=== PATIENT | female | born 1970 | race Caucasian/White ===

== ENCOUNTER → 2016-04-10 | Outpatient (REF) | payer OTHER ==
[~2016-04-10] MED LIST: /WARF5TA OR; ALBU17IN INH; COUM1TAB17 PO; PROAAER INH; SPIR1CAP INH; SYMB16INH INH; VENTAER INH; chantix PO; prednisone PO; protonix PO; tylenol PO; xarelto PO
[2016-04-10 13:48] LABS: INR 1.27
== END ==
LOC: M LAB REF 12:53
PROVIDERS: ATTEND Internal Medicine Medical Oncology
DX: L93.0 Discoid lupus erythematosus (principal)

== ENCOUNTER → 2021-05-31 | Outpatient (REF) ==
[~2021-05-31] MED LIST changes: -/WARF5TA OR; +COUM1TAB17 OR
== END ==
LOC: M PLAIMG 11:38
PROVIDERS: ATTEND Internal Medicine
DX: R52 Pain, unspecified (principal)